=== PATIENT | female | born 1940 | race Caucasian/White ===

== ENCOUNTER 2016-07-29 07:57 | Day surgery (SDC) | payer MEDICARE, BC ==
[~2016-07-29 07:57] MED LIST: EPINEPHrine 1:10,000 1 MG/10 ML Syringe ONE; Midazolam 1 MG/ML 2 ML SDV ONE; Propofol 200 MG/20 ML SDV ONE; fentaNYL 100 MCG/2 ML SDV ONE
[2016-07-29] MEDS ORDERED: Sodium Chloride 0.9% 1,000 ML IV SCH (08:00)
[2016-07-29] MEDS ORDERED: Sodium Chloride 0.9% 5 ML Syringe FLUSH PRN (08:00)
[2016-07-29] MEDS ORDERED: fentaNYL 100 MCG/2 ML SDV IV ONE (08:50)
[2016-07-29] MEDS ORDERED: Propofol 200 MG/20 ML SDV IV ONE (08:50)
[2016-07-29] MEDS ORDERED: Midazolam 1 MG/ML 2 ML SDV IV ONE (08:50)
--- NOTE | 2016-07-29 09:15 | PCM.OPNOTE ---
- General Post-Op/Procedure Note Date of Surgery/Procedure: 07/29/16 Operative Procedure(s): Upper GI endoscopy Anesthesia Technique: MAC Primary Surgeon: Michel Croft Complications: None Condition: Good Free Text/Narrative:: INFORMED CONSENT: Patient is here today for elective upper GI endoscopy. All aspects of this procedure have been discussed with the patient. All possible complications also, including possibility of perforation, infection, pain, bleeding, numbness of the throat, swallowing difficulty and unknown complications. In the event of perforation the patient may need surgical exploration to repair the defect. The patient understands fully well. Patient did not have any further questions for me at the end of my interview. The patient wishes for me to proceed. INSTRUMENT USED: Video gastroscope ANESTHESIA: [MAC] ASA CLASSIFICATION: [to] PROCEDURE PERFORMED: [upper gastrointestinal endoscopy] PHARYNX: Normal. ESOPHAGUS: Normal. Proximal: Normal. Middle: Normal. Lower: Normal. GE Junction: Normal. STOMACH: Normal. Cardia: Normal. Fundus: Normal. Lesser Curvature: Normal. Greater Curvature: Normal. Antrum: mild antral gastritis was observed. Pylorus: Normal. DUODENUM: Normal. First Part: Normal. Second Part: Normal. Third Part: Normal. RETROFLEXION: Normal. BIOPSY: None. TOLERANCE: Excellent. COMPLICATIONS: None. Final diagnosis: Mild antral gastritis, otherwise negative gastroscopy
[2016-07-29 10:13] LABS: CHLORIDE,CL 104 mmol/L (98-115); SODIUM,NA 143 mmol/L (136-145)
[2016-07-29] MEDS ORDERED: Diatrizoate Meglumine/Diatrizoate Sodium 37% 120 ML Bottle PO ONE (10:48)
[2016-07-29] MEDS ORDERED: Iopamidol 612 MG/ML 75 ML Bottle IVPUSH ONE (10:48)
[2016-07-29] MEDS ORDERED: Sodium Chloride 0.9% 50 ML SDV FLUSH SCH (11:00)
[2016-07-29 11:16] VITALS: BP 158/80
== END 2016-07-29 12:25 | disposition home or self-care (01) ==
LOC: KA.SDS 07:57
PROVIDERS: ATTEND Family Medicine
DX: K29.50 Unspecified chronic gastritis without bleeding (principal); I10 Essential (primary) hypertension; E11.9 Type 2 diabetes mellitus without complications; E78.5 Hyperlipidemia, unspecified; I48.91 Unspecified atrial fibrillation; E03.9 Hypothyroidism, unspecified; E78.00 Pure hypercholesterolemia, unspecified; Z95.0 Presence of cardiac pacemaker; Z79.84 Long term (current) use of oral hypoglycemic drugs; Z79.899 Other long term (current) drug therapy; Z88.8 Allergy status to other drugs, medicaments and biological substances
CPT/HCPCS: 36415; 43235; 74177; 80048; 82962; J2250; J2704; J3010; J7030; Q9963; Q9967; 00740

== ENCOUNTER 2016-08-12 09:04 | Day surgery (SDC) | payer MEDICARE, BC ==
[~2016-08-12 09:04] MED LIST changes: -Midazolam 1 MG/ML 2 ML SDV ONE; -Propofol 200 MG/20 ML SDV ONE; -fentaNYL 100 MCG/2 ML SDV ONE
[2016-08-12] MEDS ORDERED: fentaNYL 100 MCG/2 ML SDV ONE (09:06)
[2016-08-12] MEDS ORDERED: Midazolam 1 MG/ML 2 ML SDV ONE (09:06)
[2016-08-12] MEDS ORDERED: Propofol 200 MG/20 ML SDV ONE ×2 (09:07→09:34)
[2016-08-12] MEDS ORDERED: Sodium Chloride 0.9% 1,000 ML IV SCH (09:30)
[2016-08-12] MEDS ORDERED: Sodium Chloride 0.9% 5 ML Syringe FLUSH PRN (09:30)
[2016-08-12] MEDS ORDERED: fentaNYL 100 MCG/2 ML SDV IV ONE (10:15)
[2016-08-12] MEDS ORDERED: Midazolam 1 MG/ML 2 ML SDV IV ONE (10:15)
[2016-08-12] MEDS ORDERED: ePHEDrine 50 MG/ML SDV IV ONE (10:15)
[2016-08-12] MEDS ORDERED: Propofol 200 MG/20 ML SDV IV ONE (10:15)
--- NOTE | 2016-08-12 10:47 | PCM.OPNOTE ---
- General Post-Op/Procedure Note Date of Surgery/Procedure: 08/12/16 Operative Procedure(s): Colonoscopy Primary Surgeon: Michel Croft Complications: None Condition: Good Free Text/Narrative:: INFORMED CONSENT: Patient is here today for elective colonoscopy. All aspects of this procedure have been discussed with the patient. All possible complications also, including possibility of perforation, infection, pain, bleeding and unknown complications. In the event of perforation patient may need to have abdominal exploration, colon resection, colostomy and even was discussed. Anesthetic complications were handled by anesthesia department. The patient understands fully well. Patient did not have any further questions for me at the end of my interview. The patient wishes for me to proceed. PREOPERATIVE DIAGNOSIS/INDICATIONS: [weight loss, left lower quadrant pain, alteration of bowels] POSTOPERATIVE DIAGNOSIS: [multiple diverticulosis of the sigmoid colon otherwise negative colonoscopy] INSTRUMENT USED: [employer] videocolonoscope. ASA CLASSIFICATION: [2] ANESTHESIA: Continuous EKG, oximetry and intermittent blood pressure and respiratory monitoring were performed throughout the procedure. IV Versed and Fentanyl were administered. PROCEDURE PERFORMED: Colonoscopy POSITIONS OF PATIENT: Left lateral. RECTUM: Normal. SIGMOID COLON: multiple diverticula cystoscopy seen otherwise negative. No obstructive lesions are identified.. DESCENDING COLON: Normal. SPLENIC FLEXURE: Normal. TRANSVERSE COLON: Normal. HEPATIC FLEXURE: Normal. ASCENDING COLON: Normal. CECUM: Normal. ILEOCECAL VALVE: Normal. BIOPSY: None. TOLERANCE: Excellent. COMPLICATIONS: None.
[2016-08-12 15:06] VITALS: BP 140/71
== END 2016-08-12 12:30 | disposition home or self-care (01) ==
LOC: KA.SDS 09:04
PROVIDERS: ATTEND Family Medicine
DX: K57.30 Diverticulosis of large intestine without perforation or abscess without bleeding (principal); E11.9 Type 2 diabetes mellitus without complications; E78.00 Pure hypercholesterolemia, unspecified; I10 Essential (primary) hypertension; I48.0 Paroxysmal atrial fibrillation; E03.9 Hypothyroidism, unspecified; I49.5 Sick sinus syndrome; Z79.4 Long term (current) use of insulin; Z95.0 Presence of cardiac pacemaker; Z79.899 Other long term (current) drug therapy
CPT/HCPCS: 00810; 45378; 82962; J2250; J2704; J3010

== ENCOUNTER 2017-10-26 04:32 | Emergency (ER) | payer MEDICARE, BC ==
[2017-10-26] MEDS ORDERED: Nitroglycerin 0.4 MG Tab.SL SL PRN (04:46)
[2017-10-26] MEDS ORDERED: Sodium Chloride 0.9% 5 ML Syringe FLUSH PRN (04:46)
--- NOTE | 2017-10-26 04:58 | EDM.PDOC ---
ED HPI GENERAL MEDICAL PROBLEM - General Chief Complaint: Cardiovascular Problem Stated Complaint: high blood pressure Time Seen by Provider: 10/26/17 04:40 Source of Information: Reports: Patient History Limitations: Reports: No Limitations - History of Present Illness INITIAL COMMENTS - FREE TEXT/NARRATIVE: 77 YO WF presents to ER complaining of uncontrolled hypertension which began tonight. Pt states she woke from sleep due to thunder and with feelings of palpitations and mild left arm and hand pain. Pt took her blood pressure and found it to be 216/100 prompting ER visit. Pt has been having trouble controlling her blood pressure since 10/21/2017. Pt takes metoprolol 25mg PO BID and HCTZ 25mg PO QD for blood pressure control. Pt was taken off her losartan months ago. Pt denies chest pain, shortness of breath, nausea/vomiting, headache or dizziness. Onset Date: 10/21/17 Duration: Day(s): (6) Location: Reports: Chest Quality: Reports: Dull Severity: Mild Improves with: Reports: None Worsens with: Reports: None Associated Symptoms: Reports: No Other Symptoms - Related Data Allergies Allergy/AdvReac Type Severity Reaction Status Date / Time niacin Allergy Mild TURNS Verified 10/26/17 04:33 REALLY RED Home Meds: Home Meds Cranberry Fruit [Cranberry] 2,000 mg PO DAILY 02/10/16 [History] Hydrochlorothiazide 12.5 mg PO DAILY 02/10/16 [History] Levothyroxine [Synthroid] 50 mcg PO ACBREAKFAST 02/10/16 [History] Vit C/E/Zn/Coppr/Lutein/Zeaxan [Preservision Areds 2 Softgel] 1 tab PO BID 02/09 [History] atorvaSTATin [Lipitor] 10 mg PO DAILY 02/10/16 [History] metFORMIN HCl [Metformin HCl ER] 1,000 mg PO DAILY 02/10/16 [History] Apixaban [Eliquis] 5 mg PO BID 02/14/16 [History] Folic Acid 0.8 mg PO DAILY 03/03/16 [History] Metoprolol Tartrate [Lopressor] 25 mg PO BID 03/03/16 [History] Calcium Carbonate/Vitamin D3 [Calcium 500 mg Chewable Tablet] 1 each PO DAILY [History] Omeprazole 20 mg PO DAILY 10/26/17 [History] Past Medical History HEENT History: Reports: Cataract Cardiovascular History: Reports: Afib, Arrhythmia, High Cholesterol, Hypertension, Pacemaker Gastrointestinal History: Reports: Cholelithiasis [employer] History: Reports: Other (See Below) Other [employer] History: G-4,P-4 Musculoskeletal History: Reports: Other (See Below) Other Musculoskeletal History: fallen arches. curvature of the spine, sleeps in a recliner at home Other Neuro History: MRI right cyst sinus--2017 Endocrine/Metabolic History: Reports: Diabetes, Type II, Hypothyroidism - Infectious Disease History Infectious Disease History: Reports: Chicken Pox, Mumps - Past Surgical History HEENT Surgical History: Reports: Tonsillectomy Cardiovascular Surgical History: Reports: Pacer Other Cardiovascular Surgeries/Procedures: pacemaker 2015 GI Surgical History: Reports: Cholecystectomy Endocrine Surgical History: Reports: None Musculoskeletal Surgical History: Reports: None Social & Family History - Family History Cardiac: Reports: Other (See Below) Other Cardiac Family History: heart disease - Caffeine Use Caffeine Use: Reports: Tea ED ROS GENERAL - Review of Systems Review Of Systems: See Below Constitutional: Reports: No Symptoms HEENT: Reports: No Symptoms Respiratory: Reports: No Symptoms Cardiovascular: Reports: Palpitations Endocrine: Reports: No Symptoms GI/Abdominal: Reports: No Symptoms : Reports: No Symptoms Musculoskeletal: Reports: No Symptoms Skin: Reports: No Symptoms Neurological: Reports: No Symptoms Psychiatric: Reports: No Symptoms Hematologic/Lymphatic: Reports: No Symptoms Immunologic: Reports: No Symptoms ED EXAM, GENERAL - Physical Exam Exam: See Below Exam Limited By: No Limitations General Appearance: Alert, WD/WN, No Apparent Distress Eye Exam: Bilateral Eye: EOMI, PERRL Head: Atraumatic, Normocephalic Neck: Normal Inspection, Supple, Non-Tender, Full Range of Motion Respiratory/Chest: No Respiratory Distress, Lungs Clear, Normal Breath Sounds, No Accessory Muscle Use, Chest Non-Tender Cardiovascular: Normal Peripheral Pulses, Regular Rate, Rhythm, No Edema, No Gallop, No JVD, No Murmur, No Rub GI/Abdominal: Normal Bowel Sounds, Soft, Non-Tender, No Organomegaly, No Distention, No Abnormal Bruit, No Mass Back Exam: Normal Inspection, Full Range of Motion, NT Extremities: Normal Inspection, Normal Range of Motion, Non-Tender, Normal Capillary Refill, No Pedal Edema Neurological: Alert, Oriented, CN II-XII Intact, Normal Cognition, Normal Gait, Normal Reflexes, No Motor/Sensory Deficits Psychiatric: Normal Affect, Normal Mood Skin Exam: Warm, Dry, Intact, Normal Color, No Rash Lymphatic: No Adenopathy EKG INTERPRETATION EKG Date: 10/26/17 Time: 04:42 Rhythm: NSR Rate (Beats/Min): 76 [place]: Normal P-Wave: Present QRS: Normal ST-T: Normal QT: Normal Comparison: NA - No Prior EKG EKG Interpretation Comments: 100% AV paced Course - Vital Signs Last Recorded V/S: Last Vital Signs Temp 36.8 C 10/26/17 04:32 Pulse 77 10/26/17 05:41 Resp 18 10/26/17 05:41 BP 159/78 H 10/26/17 05:41 Pulse Ox 93 L 10/26/17 05:41 - Orders/Labs/Meds Orders: Active Orders 24 hr Category Date Time Status Cardiac Monitoring [RC] . DIRECTED Care 10/26/17 04:46 Ordered EKG Documentation Completion [RC] ASDIRECTED Care 10/26/17 04:46 Ordered Peripheral IV Care [RC] . DIRECTED Care 10/26/17 04:46 Ordered Chest 1V Frontal [CR] Stat Exams 10/26/17 04:46 Ordered Nitroglycerin [Nitrostat] Med 10/26/17 04:46 Ordered 0.4 mg SL Q5M PRN Sodium Chloride 0.9% [Syrex Flush] Med 10/26/17 04:46 Ordered 5 ml FLUSH Q8HR PRN Peripheral IV Insertion Adult [OM.PC] Routine Oth 10/26/17 04:46 Ordered EKG 12 Lead [EK] Routine Ther 10/26/17 04:46 Ordered Medication Orders Nitroglycerin (Nitrostat) 0.4 mg SL Q5M PRN PRN Reason: Chest Pain Last Admin: 10/26/17 05:13 Dose: 0.4 mg Sodium Chloride (Syrex Flush) 5 ml FLUSH Q8HR PRN PRN Reason: Keep Vein Open Labs: Laboratory Tests 10/26/17 10/26/17 10/26/17 Range/Units 04:50 04:50 04:50 WBC 4.9 L (5.0-10.0) 10^3/uL RBC 4.16 (3.80-5.50) 10^6/uL Hgb 13.2 (12.0-16.0) g/dL Hct 39.2 (37.0-47.0) % MCV 94.2 H (82.0-92.0) fL MCH 31.6 H (27.0-31.0) pg MCHC 33.6 (32.0-36.0) g/dL RDW 12.8 (11.5-14.5) % Plt Count 216 (150-300) 10^3/uL MPV 6.7 L (7.4-10.4) fL Neut % (Auto) 55.0 (50.0-70.0) % Lymph % (Auto) 33.2 (20.0-40.0) % [place] % (Auto) 8.6 H (2.0-8.0) % Eos % (Auto) 2.2 (1.0-3.0) % Baso % (Auto) 1.0 (0.0-1.0) % Neut # (Auto) 2.8 (2.5-7.0) 10^3/uL Lymph # (Auto) 1.6 (1.0-4.0) 10^3/uL [place] # (Auto) 0.4 (0.1-0.8) 10^3/uL Eos # (Auto) 0.1 (0.1-0.3) 10^3/uL Baso # (Auto) 0.0 (0.0-0.1) 10^3/uL PT 9.8 (8.9-11.4) SEC INR 1.0 (0.9-1.1) APTT 24.1 (20.8-31.2) SEC Sodium 141 (136-145) mmol/L Potassium 3.6 (3.3-5.3) mmol/L Chloride 103 (98-115) mmol/L Carbon Dioxide 29.2 (21.0-32.0) mmol/L Anion Gap 12.4 (5-15) mmol/L BUN 25 (6-25) mg/dL Creatinine 0.83 (0.51-1.17) mg/dL Est Cr Clr Drug Dosing 58.43 mL/min Estimated GFR (MDRD) > 60 mL/min Glucose 139 mg/dL Calcium 8.9 (8.7-10.3) mg/dL Total Bilirubin 0.4 (0.2-1.0) mg/dL AST 21 (15-37) U/L ALT 25 (12-78) U/L Alkaline Phosphatase 82 (46-116) IU/L Creatine Kinase 77 (26-276) U/L CK-MB (CK-2) 0.60 (0.00-4.30) ng/mL Troponin I < 0.04 (0.00-0.070) ng/mL Total Protein 7.6 (6.4-8.2) g/dL Albumin 3.34 (3.00-4.80) g/dL Meds: Medications Generic Name Dose Route Start Last Admin Trade Name Freq PRN Reason Stop Dose Admin Nitroglycerin 0.4 mg 10/26/17 04:46 10/26/17 05:13 Nitrostat SL 0.4 mg Q5M PRN Administration Chest Pain Sodium Chloride 5 ml 10/26/17 04:46 Syrex Flush FLUSH Q8HR PRN Keep Vein Open Discontinued Medications Generic Name Dose Route Start Last Admin Trade Name Freq PRN Reason Stop Dose Admin Nitroglycerin 1 gm 10/26/17 05:21 10/26/17 05:26 Nitro-Bid 2% TOP 10/26/17 05:22 1 gm ONETIME ONE Administration - Radiology Interpretation Free Text/Narrative:: CXR- NAD - Re-Assessments/Exams Free Text/Narrative Re-Assessment/Exam: 10/26/17 05:45 Pt currently without chest pain or headache. Discussed hospitalization for blood pressure control and pt states she would rather go home. Pt instructed to take her motoprolol 25mg and HCTZ 25mg this am and return if symptoms continue or chest pain/TEAGUE ensue. Pt instructed to follow up with Dr Ricardo tomorrow for further evaluation and treatment of blood pressure. Departure - Departure Time of Disposition: 05:49 Disposition: Home, Self-Care 01 Condition: Good Clinical Impression: Palpitation Hypertension Qualifiers: Hypertension type: essential hypertension Qualified Code(s): I10 - Essential ( primary) hypertension Instructions: Palpitations, Hypertension Referrals: Hanane Pryor MD [Primary Care Provider] - Forms: ED Department Discharge Additional Instructions: 1. Discharge home 2. Pt instructed to take her motoprolol 25mg and HCTZ 25mg this am and return if symptoms continue or chest pain/TEAGUE ensue. Pt instructed to follow up with Dr Ricardo tomorrow for further evaluation and treatment of blood pressure. 3. Return to ER for BP greater than 200/100 or chest pain/shortness of breath/ or headache - My Orders Last 24 Hours: My Active Orders 10/26/17 04:46 Cardiac Monitoring [RC] . DIRECTED EKG Documentation Completion [RC] ASDIRECTED Peripheral IV Care [RC] . DIRECTED Chest 1V Frontal [CR] Stat Nitroglycerin [Nitrostat] 0.4 mg SL Q5M PRN Sodium Chloride 0.9% [Syrex Flush] 5 ml FLUSH Q8HR PRN Peripheral IV Insertion Adult [OM.PC] Routine EKG 12 Lead [EK] Routine - Assessment/Plan Last 24 Hours: My Active Orders 10/26/17 04:46 Cardiac Monitoring [RC] . DIRECTED EKG Documentation Completion [RC] ASDIRECTED Peripheral IV Care [RC] . DIRECTED Chest 1V Frontal [CR] Stat Nitroglycerin [Nitrostat] 0.4 mg SL Q5M PRN Sodium Chloride 0.9% [Syrex Flush] 5 ml FLUSH Q8HR PRN Peripheral IV Insertion Adult [OM.PC] Routine EKG 12 Lead [EK] Routine Assessment:: 1. Palpitations 2. Uncontrolled Hypertension Plan: 1. Discharge home 2. Pt instructed to take her motoprolol 25mg and HCTZ 25mg this am and return if symptoms continue or chest pain/TEAGUE ensue. Pt instructed to follow up with Dr Ricardo tomorrow for further evaluation and treatment of blood pressure. 3. Return to ER for BP greater than 200/100 or chest pain/shortness of breath/ or headache
[2017-10-26] MEDS ORDERED: Nitroglycerin 2% Oint 1 GM UD Packet TOP ONE (05:21)
[2017-10-26 05:39] LABS: ANION GAP 12.4 mmol/L (5-15); CHLORIDE,CL 103 mmol/L (98-115); SODIUM,NA 141 mmol/L (136-145)
[2017-10-26 05:41] VITALS: BP 159/78
== END 2017-10-26 06:05 | disposition home or self-care (01) ==
LOC: KA.ED 04:32
DX: I10 Essential (primary) hypertension (principal); R00.2 Palpitations; E78.00 Pure hypercholesterolemia, unspecified; E11.9 Type 2 diabetes mellitus without complications; E03.9 Hypothyroidism, unspecified; Z88.8 Allergy status to other drugs, medicaments and biological substances; Z79.899 Other long term (current) drug therapy; Z79.84 Long term (current) use of oral hypoglycemic drugs
CPT/HCPCS: 71045; 80053; 82550; 82553; 84484; 85025; 85610; 85730; 93005; 99284; A9270-GY

== ENCOUNTER 2019-01-13 10:00 | Emergency (ER) | payer MEDICARE, BC ==
[2019-01-13] MEDS ORDERED: Sodium Chloride 0.9% 10 ML Syringe FLUSH PRN (10:22)
--- NOTE | 2019-01-13 11:21 | EDM.PDOC ---
ED HPI GENERAL MEDICAL PROBLEM - General Chief Complaint: General Stated Complaint: NUMBNESS IN LEFT ARM/HAND, BLOOD PRESSURE Time Seen by Provider: 01/13/19 10:45 Source of Information: Reports: Patient, Significant Other History Limitations: Reports: No Limitations - History of Present Illness INITIAL COMMENTS - FREE TEXT/NARRATIVE: Patient presents with complaint of elevated blood pressure and numbness of fingers of right hand. This occurs fairly often but is usually in the left hand. She takes Losartan and Metoprolol daily and uses Hydralazine prn pressure over 180/110. She has had the Hydralazine for a little over 6 weeks and we counted 12 tablets used from the bottle today; so she uses it about twice weekly. She denies chest pain or dyspnea. She has had increased urine frequency last few days. She recently had a UTI diagnosis and started on Abx but culture ruled out so she stopped the Abx. - Related Data Allergies Allergy/AdvReac Type Severity Reaction Status Date / Time niacin Allergy Mild TURNS Verified 01/13/19 10:17 REALLY RED Home Meds: Home Meds Hydrochlorothiazide 25 mg PO DAILY 02/10/16 [History] Levothyroxine [Synthroid] 50 mcg PO ACBREAKFAST 02/10/16 [History] Vit C/E/Zn/Coppr/Lutein/Zeaxan [Preservision Areds 2 Softgel] 1 tab PO DAILY [History] atorvaSTATin [Lipitor] 10 mg PO DAILY 02/10/16 [History] Apixaban [Eliquis] 5 mg PO BID 02/14/16 [History] Metoprolol Tartrate [Lopressor] 25 mg PO BID 03/03/16 [History] Cyanocobalamin (Vitamin B-12) [Vitamin B-12] 1,000 mcg PO DAILY 01/13/19 [ History] Losartan Potassium 50 mg PO DAILY 01/13/19 [History] Mv-Mn/Folic Acid/Vit [id number] [Alive Once Daily Women 50 Plus] 1 each PO DAILY 01/13/19 [History] hydrALAZINE HCl [Hydralazine HCl] 10 mg PO DAILY PRN 01/13/19 [History] metFORMIN HCl [Metformin HCl ER] 1,000 mg PO DAILY 01/13/19 [History] Past Medical History HEENT History: Reports: Cataract Cardiovascular History: Reports: Afib, Arrhythmia, High Cholesterol, Hypertension, Pacemaker Gastrointestinal History: Reports: Cholelithiasis, GERD LEATHER TOGGLER History: Reports: Other (See Below) Other LEATHER TOGGLER History: G-4,P-4 Musculoskeletal History: Reports: Other (See Below) Other Musculoskeletal History: fallen arches. curvature of the spine, sleeps in a recliner at home Other Neuro History: MRI right cyst sinus--2017 with pain to area above R eyes radiating to the R ear Endocrine/Metabolic History: Reports: Diabetes, Type II, Hypothyroidism Hematologic History: Reports: Folic Acid - Infectious Disease History Infectious Disease History: Reports: Chicken Pox, Mumps - Past Surgical History HEENT Surgical History: Reports: Tonsillectomy Cardiovascular Surgical History: Reports: Pacer Other Cardiovascular Surgeries/Procedures: pacemaker 2016 GI Surgical History: Reports: Cholecystectomy Endocrine Surgical History: Reports: None Musculoskeletal Surgical History: Reports: None Social & Family History - Family History Cardiac: Reports: Other (See Below) Other Cardiac Family History: heart disease - Tobacco Use Smoking Status *Q: Never Smoker Second Hand Smoke Exposure: No - Caffeine Use Caffeine Use: Reports: Soda, Tea Caffeine Use Comment: not assessed - Recreational Drug Use Recreational Drug Use: No ED ROS GENERAL - Review of Systems Review Of Systems: See Below Constitutional: Denies: Fever, Weakness HEENT: Denies: Throat Pain, Throat Swelling, Vision Change Respiratory: Denies: Shortness of Breath, Cough Cardiovascular: Reports: Blood Pressure Problem, Lightheadedness Endocrine: Reports: Other (NIDDM) GI/Abdominal: Denies: Abdominal Pain, Bloody Stool, Diarrhea, Nausea, Vomiting : Reports: Frequency. Denies: Dysuria Musculoskeletal: Denies: Neck Pain, Shoulder Pain, Arm Pain, Back Pain, Hand Pain, Leg Pain, Foot Pain Skin: Denies: Cyanosis, Jaundice, Mottled, Pallor, Diaphoresis Neurological: Denies: Confusion, Dizziness, Headache, Seizure, Syncope, Trouble Speaking, Difficulty Walking Psychiatric: Denies: Agitation, Anxiety ED EXAM, GENERAL - Physical Exam Exam: See Below Exam Limited By: No Limitations General Appearance: Alert, WD/WN, No Apparent Distress Eye Exam: Bilateral Eye: EOMI, Normal Inspection, PERRL Ears: Normal External Exam, Hearing Grossly Normal Nose: Normal Inspection, No Blood Throat/Mouth: Normal Inspection, Normal Lips, Normal Voice, No Airway Compromise Head: Atraumatic, Normocephalic Neck: Normal Inspection, Supple, Non-Tender, Full Range of Motion Respiratory/Chest: No Respiratory Distress, Lungs Clear, Normal Breath Sounds Cardiovascular: Normal Peripheral Pulses, Regular Rate, Rhythm GI/Abdominal: Normal Bowel Sounds, Soft, Non-Tender, No Organomegaly, No Distention Back Exam: Normal Inspection, Full Range of Motion. No: CVA Tenderness (L), CVA Tenderness (R) Extremities: Normal Range of Motion, Other (Decreased sensation to touch of right small finger and ulnar border of ring finger. Otherwise normal sensation throughout.) Neurological: Alert, Oriented, Normal Cognition, No Motor/Sensory Deficits Psychiatric: Normal Affect, Normal Mood Skin Exam: Warm, Dry, Intact, Normal Color, No Rash Course - Vital Signs Last Recorded V/S: Last Vital Signs Temp 97.9 F 01/13/19 10:00 Pulse 71 01/13/19 11:58 Resp 21 H 01/13/19 11:58 BP 163/69 H 01/13/19 11:58 Pulse Ox 95 01/13/19 11:58 - Orders/Labs/Meds Orders: Active Orders 24 hr Category Date Time Status EKG Documentation Completion [RC] ASDIRECTED Care 01/13/19 10:23 Active Peripheral IV Care [RC] . DIRECTED Care 01/13/19 10:23 Active Heparin Sodium/0.45% NaCl [Heparin 25,000 Units in 1/2 Med 01/13/19 12:00 Ordered NS 250 ML] 25,000 units in 250 ml IV TITRATE Nitroglycerin [Nitrostat] Med 01/13/19 11:39 Ordered 0.4 mg SL Q5M PRN Sodium Chloride 0.9% [Saline Flush] Med 01/13/19 10:22 Active 10 ml FLUSH Q8HR PRN Peripheral IV Insertion Adult [OM.PC] Routine Oth 01/13/19 10:22 Ordered Medication Orders Heparin Sodium/Sodium Chloride (Heparin 25,000 Units In 1/2 Ns 250 Ml) 25,000 units in 250 mls @ 9.798 mls/hr IV TITRATE CAROL; Protocol Nitroglycerin (Nitrostat) 0.4 mg SL Q5M PRN PRN Reason: Chest Pain Sodium Chloride (Saline Flush) 10 ml FLUSH Q8HR PRN PRN Reason: keep vein open Labs: Laboratory Tests 01/13/19 01/13/19 01/13/19 Range/Units 10:30 10:45 10:50 WBC 5.28 (5.00-10.00) 10^3/uL RBC 3.84 (3.80-5.50) 10^6/uL Hgb 12.2 (12.0-16.0) g/dL Hct 36.2 L (37.0-47.0) % MCV 94.3 H (82.0-92.0) fL MCH 31.8 H (27.0-31.0) pg MCHC 33.7 (32.0-36.0) g/dL RDW 13.0 (11.5-14.5) % Plt Count 209 (150-400) 10^3/uL MPV 9.4 (7.4-10.4) fL Immature Gran % (Auto) 0.0 (0.0-5.0) % Neut % (Auto) 70.5 H (50.0-70.0) % Lymph % (Auto) 20.8 (20.0-40.0) % [place] % (Auto) 7.0 (2.0-8.0) % Eos % (Auto) 0.9 L (1.0-3.0) % Baso % (Auto) 0.8 (0.0-1.0) % Immature Gran # (Auto) 0.00 (0.00-0.50) 10^3/uL Neut # (Auto) 3.72 (2.50-7.00) 10^3/uL Lymph # (Auto) 1.10 (1.00-4.00) 10^3/uL [place] # (Auto) 0.37 (0.10-0.80) 10^3/uL Eos # (Auto) 0.05 L (0.10-0.30) 10^3/uL Baso # (Auto) 0.04 (0.00-0.10) 10^3/uL Sodium 139 (136-145) mmol/L Potassium 3.8 (3.3-5.3) mmol/L Chloride 99 (98-115) mmol/L Carbon Dioxide 30.7 (21.0-32.0) mmol/L Anion Gap 13.1 (5-15) mmol/L BUN 21 (6-25) mg/dL Creatinine 0.78 (0.51-1.17) mg/dL Est Cr Clr Drug Dosing 61.16 mL/min Estimated GFR (MDRD) > 60 mL/min Glucose 249 H (75 - 99) mg/dL Calcium 9.3 (8.7-10.3) mg/dL Total Bilirubin 0.7 (0.2-1.0) mg/dL AST 17 (15-37) U/L ALT 25 (12-78) U/L Alkaline Phosphatase 78 (46-116) IU/L Troponin I 0.08 H* (0.00-0.070) ng/mL Total Protein 7.3 (6.4-8.2) g/dL Albumin 3.46 (3.00-4.80) g/dL Specimen Type Urinvoid Urine Color Yellow (YELLOW) Urine Appearance Slightly cloudy H (CLEAR) Urine pH 6.0 (5.0-9.0) Ur Specific Slinger 1.010 (1.005-1.030) Urine Protein Negative (NEGATIVE) mg/dL Urine Glucose (UA) Negative (NEGATIVE) mg/dL Urine Ketones Negative (NEGATIVE) mg/dL Urine Occult Blood Negative (NEGATIVE) Urine Nitrite Negative (NEGATIVE) Urine Bilirubin Negative (NEGATIVE) Urine Urobilinogen 0.2 (0.2-1.0) E.U./dL Ur Leukocyte Esterase Small H (NEGATIVE) Urine RBC 0-5 (0-5) /HPF Urine WBC 20-30 H (0-5) /HPF Ur Epithelial Cells Moderate H /LPF Urine Bacteria Moderate H (NONE TO FEW) /HPF Meds: Medications Generic Name Dose Route Start Last Admin Trade Name Freq PRN Reason Stop Dose Admin Heparin Sodium/Sodium Chloride 25,000 units in 250 mls @ 9.798 mls/hr 12:00 Heparin 25,000 Units In 1/2 Ns 250 Ml IV TITRATE CAROL Protocol 12 UNITS/KG/HR Nitroglycerin 0.4 mg 01/13/19 11:39 Nitrostat SL Q5M PRN Chest Pain Sodium Chloride 10 ml 01/13/19 10:22 Saline Flush FLUSH Q8HR PRN keep vein open Discontinued Medications Generic Name Dose Route Start Last Admin Trade Name Freq PRN Reason Stop Dose Admin Aspirin 324 mg 01/13/19 11:39 Aspirin PO 01/13/19 11:40 ONETIME ONE Heparin Sodium (Porcine) 5,000 units 01/13/19 11:58 Heparin Sodium IVPUSH 01/13/19 11:59 ONETIME ONE - Re-Assessments/Exams Free Text/Narrative Re-Assessment/Exam: 01/13/19 11:53 Trop is 0.08, patient is having a vague, [id number] chest discomfort or pressure. Also an occasional sharp substernal pain. Giving ASA and nitro now. Discussed findings and recommendation with patient and her and they would like to go to [place]. Discussed case with Dr. Trevino (hospitalist) who accepted for transfer. Also discussed with Dr. Shabazz regarding UA and will not treat for UTI now but wait on culture. UA shows small leukocyte esterase and moderate WBC and bacteria. 01/13/19 12:06 Discussed with patient the evidence of ulnar nerve entrapment and advised ortho follow up if desired, especially if worsening. 01/13/19 12:26 Patient is stable. Departure - Departure Time of Disposition: 12:04 Disposition: DC/Tfer to Acute Hospital 02 Condition: Good Clinical Impression: NSTEMI, initial episode of care - Discharge Information Referrals: Hanane Pryor MD [Primary Care Provider] - Forms: ED Department Discharge - My Orders Last 24 Hours: My Active Orders 01/13/19 10:22 Sodium Chloride 0.9% [Saline Flush] 10 ml FLUSH Q8HR PRN Peripheral IV Insertion Adult [OM.PC] Routine 01/13/19 10:23 EKG Documentation Completion [RC] ASDIRECTED Peripheral IV Care [RC] . DIRECTED 01/13/19 11:39 Nitroglycerin [Nitrostat] 0.4 mg SL Q5M PRN 01/13/19 12:00 Heparin Sodium/0.45% NaCl [Heparin 25,000 Units in 1/2 NS 250 ML] 25,000 units in 250 ml IV TITRATE - Assessment/Plan Last 24 Hours: My Active Orders 01/13/19 10:22 Sodium Chloride 0.9% [Saline Flush] 10 ml FLUSH Q8HR PRN Peripheral IV Insertion Adult [OM.PC] Routine 01/13/19 10:23 EKG Documentation Completion [RC] ASDIRECTED Peripheral IV Care [RC] . DIRECTED 01/13/19 11:39 Nitroglycerin [Nitrostat] 0.4 mg SL Q5M PRN 01/13/19 12:00 Heparin Sodium/0.45% NaCl [Heparin 25,000 Units in 1/2 NS 250 ML] 25,000 units in 250 ml IV TITRATE
[2019-01-13 11:30] LABS: ANION GAP 13.1 mmol/L (5-15); CHLORIDE,CL 99 mmol/L (98-115); SODIUM,NA 139 mmol/L (136-145)
[2019-01-13] MEDS ORDERED: Aspirin 81 MG Tab.Chew PO ONE (11:39)
[2019-01-13] MEDS ORDERED: Nitroglycerin 0.4 MG Tab.SL SL PRN (11:39)
[2019-01-13] MEDS ORDERED: Heparin Sodium 5,000 Units/ML Vial IVPUSH ONE (11:58)
[2019-01-13 11:59] VITALS: PULSE 71
[2019-01-13] MEDS ORDERED: Heparin Sodium/0.45% NaCl 25,000 UNITS/250 ML BAG IV SCH (12:00)
[2019-01-13 12:15] VITALS: BP 165/76
== END 2019-01-13 12:50 ==
LOC: KA.ED 10:00
DX: I21.4 Non-ST elevation (NSTEMI) myocardial infarction (principal); I48.91 Unspecified atrial fibrillation; I10 Essential (primary) hypertension; E78.00 Pure hypercholesterolemia, unspecified; K21.9 Gastro-esophageal reflux disease without esophagitis; E11.9 Type 2 diabetes mellitus without complications; E03.9 Hypothyroidism, unspecified; Z79.84 Long term (current) use of oral hypoglycemic drugs; Z79.899 Other long term (current) drug therapy; Z88.8 Allergy status to other drugs, medicaments and biological substances
CPT/HCPCS: 36415; 80053; 81001; 84484; 85025; 85730; 93005; 96365; 99284; 99285; A9270; J1644

== ENCOUNTER 2019-03-23 08:53 | Day surgery (SDC) | payer MEDICARE, BC ==
[~2019-03-23 08:53] MED LIST changes: -EPINEPHrine 1:10,000 1 MG/10 ML Syringe ONE; +Sodium Chloride 0.9% 1,000 ML IV SCH; +Sodium Chloride 0.9% 10 ML Syringe FLUSH PRN
[2019-03-23] MEDS: Sodium Chloride 0.9% 1,000 ML IV SCH (09:15)
[2019-03-23] MEDS: Sodium Chloride 0.9% 10 ML Syringe FLUSH PRN (09:15)
[2019-03-23] MEDS ORDERED: Ketamine 200 MG/20 ML MDV ONE (10:06)
[2019-03-23] MEDS ORDERED: Propofol 200 MG/20 ML SDV ONE (10:06)
[2019-03-23] MEDS ORDERED: Lidocaine 2% 100 MG/5 ML Syringe ONE (10:07)
--- NOTE | 2019-03-23 10:33 | PCM.PN ---
- General Info Date of Service: 03/23/19 - Review of Systems Systems Review Comment:: 78-year-old female referred for EGD. She is having symptoms of dysphasia and difficulty swallowing. She denies symptoms of heartburn. Symptoms are more significant later in the day and less of a problem for breakfast. She is unable to determine any particular food which is worse than others. I have discussed the proposed EGD with the patient. She agrees to proceed excepting risks. Her recent history and physical is reviewed and no significant changes are noted. - Patient Data Vitals - Most Recent: Last Vital Signs Temp 97.8 F 03/23/19 09:25 Pulse 77 03/23/19 09:25 Resp 18 03/23/19 09:25 BP 159/92 H 03/23/19 09:25 Pulse Ox 97 03/23/19 09:25 Weight - Most Recent: 82.554 kg Lab Results Last 24 Hours: Laboratory Results - last 24 hr 03/23/19 Range/Units 09:16 POC Glucose 120 H (74-106) mg/dl Med Orders - Current: Current Medications Sodium Chloride (Normal Saline) 1,000 mls @ 30 mls/hr IV ASDIRECTED [facility] Last Admin: 03/23/19 09:15 Dose: 30 mls/hr Sodium Chloride (Saline Flush) 10 ml FLUSH Q8HR PRN PRN Reason: keep vein open Last Admin: 03/23/19 09:15 Dose: 10 ml Discontinued Medications Sodium Chloride (Normal Saline) 1,000 mls @ 50 mls/hr IV ASDIRECTED [facility] Ketamine HCl (Ketalar) Confirm Administered Dose 200 mg .ROUTE .STK-MED ONE Stop: 03/23/19 10:07 Lidocaine HCl (Xylocaine 2%) Confirm Administered Dose 100 mg .ROUTE .STK-MED ONE Stop: 03/23/19 10:08 Propofol (Diprivan 20 Ml) Confirm Administered Dose 200 mg .ROUTE .STK-MED ONE Stop: 03/23/19 10:07 Sodium Chloride (Saline Flush) 10 ml FLUSH Q8HR PRN PRN Reason: keep vein open Sepsis Event Note - Focused Exam Vital Signs: Vital Signs Temp Pulse Resp BP Pulse Ox 03/23/19 09:25 97.8 F 77 18 159/92 H 97 Date Exam was Performed: 03/23/19 Time Exam was Performed: 10:31 - Problem List Review Problem List Initiated/Reviewed/Updated: Yes - My Orders Last 24 Hours: My Active Orders 03/22/19 15:31 Resuscitation Status Routine 03/23/19 09:00 Blood Glucose Check, Bedside [RC] ONETIME Peripheral IV Care [RC] . DIRECTED Verify Patient Consent Obtain [RC] ASDIRECTED Vital Signs [RC] 1200 Sodium Chloride 0.9% [Normal Saline] 1,000 ml IV ASDIRECTED Sodium Chloride 0.9% [Saline Flush] 10 ml FLUSH Q8HR PRN Peripheral IV Insertion Adult [OM.PC] Routine 03/23/19 Breakfast Nothing Per Oral Diet [DIET] - Assessment Assessment:: Dysphasia - Plan Plan:: EGD
--- NOTE | 2019-03-23 11:17 | PCM.OPNOTE ---
- General Post-Op/Procedure Note Date of Surgery/Procedure: 03/23/19 Operative Procedure(s): EGD with biopsy Findings: Normal-appearing upper endoscopy. No visible abnormalities or narrowing in hypopharynx or esophagus Pre Op Diagnosis: Dysphasia Post-Op Diagnosis: Normal EGD Anesthesia Technique: MAC Primary Surgeon: Vaibhav Gilman Pathology: Biopsies of gastric antrum EBL in mLs: 3 Complications: None Condition: Good
--- NOTE | 2019-03-23 11:59 | OR ---
DATE OF SURGERY: 03/23/2019 SURGEON: Vaibhav Gilman MD PREOPERATIVE DIAGNOSIS: Dysphagia. POSTOPERATIVE DIAGNOSIS: Normal upper endoscopy. OPERATION PERFORMED: Esophagogastroduodenoscopy with biopsy. INDICATIONS FOR SURGERY: This 78-year-old female has been noticing increasing difficulty with swallowing her afternoon and evening meals. She is not having any pain in the throat area, but finds that foods and sometimes liquids will not swallow easily. FINDINGS: The structures noted on upper endoscopy appear normal. Her oral and hypopharynx as well as her esophagus appeared normal without visible signs of inflammation or any visible evidence of narrowing or mass. The lining of the stomach and proximal duodenum also appeared normal. DESCRIPTION OF PROCEDURE: The patient was taken to the operating room. She was given intravenous sedation and with her in the left lateral decubitus position, gastroscope was advanced through a mouth guard into the oral cavity. Under direct visualization, the oral and hypopharynx are examined as the scope was carefully advanced down into the esophagus. The scope was then advanced down through the esophagus, stomach, and into the duodenum where examination to the third portion was performed. After carefully examining the duodenum, the scope was withdrawn back into the stomach. Random biopsies of the antrum were taken to rule out H pylori. Full examination of the stomach including retroflexed examination of the fundus was performed. The GE junction was carefully examined as is the esophagus again as the scope was withdrawn. After the examination is completed, the scope was removed and the patient was taken from the operating room in satisfactory condition. ESTIMATED BLOOD LOSS: 3 mL. COMPLICATIONS: None. PROGNOSIS: Good. /[id number]/MODL
[2019-03-23 12:24] VITALS: BP 147/76; PULSE 70
== END 2019-03-23 12:22 | disposition home or self-care (01) ==
LOC: KA.SDS 08:53
PROVIDERS: ATTEND Surgery
DX: K31.89 Other diseases of stomach and duodenum (principal); R47.02 Dysphasia; I10 Essential (primary) hypertension; E11.9 Type 2 diabetes mellitus without complications; E03.9 Hypothyroidism, unspecified; I48.91 Unspecified atrial fibrillation; E78.00 Pure hypercholesterolemia, unspecified; F51.02 Adjustment insomnia; Z79.01 Long term (current) use of anticoagulants; Z79.899 Other long term (current) drug therapy; Z88.8 Allergy status to other drugs, medicaments and biological substances
CPT/HCPCS: 43239; 82962; J2001; J2704; J7030; 00731

== ENCOUNTER 2021-09-21 08:18 | Emergency (ER) | payer MEDICARE, BC ==
[2021-09-21] MEDS: Aspirin 81 MG Tab.Chew PO ONE (08:34)
[2021-09-21] MEDS: Sodium Chloride 0.9% 1,000 ML IV ONE (09:05)
[2021-09-21 09:14] LABS: CHLORIDE,CL 98 mmol/L (98-107); ESTIMATED GFR > 60 mL/min; SODIUM,NA 137 mmol/L (136-145)
[2021-09-21] MEDS: Sodium Chloride 0.9% 1,000 ML ONE (09:18)
[2021-09-21] MEDS: Morphine 2 MG/ML SYRINGE IVPUSH ONE (09:21)
[2021-09-21] MEDS: Methocarbamol 500 MG Tab PO ONE (10:25)
[2021-09-21 11:35] VITALS: BP 124/66; PULSE 72
== END 2021-09-21 11:04 | disposition home or self-care (01) ==
LOC: KA.ED 08:18
DX: R07.89 Other chest pain (principal); K21.9 Gastro-esophageal reflux disease without esophagitis; I48.91 Unspecified atrial fibrillation; E78.00 Pure hypercholesterolemia, unspecified; I10 Essential (primary) hypertension; E03.9 Hypothyroidism, unspecified; Z95.0 Presence of cardiac pacemaker; Z88.1 Allergy status to other antibiotic agents; Z79.01 Long term (current) use of anticoagulants; Z79.84 Long term (current) use of oral hypoglycemic drugs; Z79.899 Other long term (current) drug therapy
CPT/HCPCS: 36415; 71046; 80053; 81001; 82550; 84484; 85025; 93005; 93010; 96361; 96374; 99284; 99285-25; A9270-GY; J2270; J7030

== ENCOUNTER 2022-03-27 19:11 | Emergency (ER) | payer MEDICARE, BC ==
[2022-03-27 19:52] LABS: ANION GAP 11.2 mmol/L (5-15); CHLORIDE,CL 96 mmol/L (98-107); SODIUM,NA 132 mmol/L (136-145)
[2022-03-27 19:55] LABS: ESTIMATED GFR 71 mL/min (>=60)
[2022-03-27 20:17] LABS: RESPIRATORY SYNCYTIAL VIR NAA NEGATIVE (NEGATIVE)
[2022-03-27] MEDS: Sodium Chloride 0.9% 500 ML IV ONE (20:20)
[2022-03-27 20:28] LABS: CORONAVIRUS COVID-19 NAA NEGATIVE (NEGATIVE)
[2022-03-28] MEDS: Sodium Chloride 0.9% 1,000 ML IV ONE (00:18)
== END 2022-03-27 21:00 | disposition home or self-care (01) ==
LOC: KA.ED 19:11
DX: J10.1 Influenza due to other identified influenza virus with other respiratory manifestations (principal); I48.91 Unspecified atrial fibrillation; I10 Essential (primary) hypertension; E78.00 Pure hypercholesterolemia, unspecified; E03.9 Hypothyroidism, unspecified; Z88.1 Allergy status to other antibiotic agents; Z79.01 Long term (current) use of anticoagulants; Z79.82 Long term (current) use of aspirin; Z79.899 Other long term (current) drug therapy; Z20.822 Contact with and (suspected) exposure to COVID-19
CPT/HCPCS: 0241U; 36415; 71045; 80053; 81001; 85025; 87086; 99284; 99285; J7030

== ENCOUNTER 2024-04-10 11:42 | Inpatient (IN) | payer MEDICARE, BC ==
[2024-04-10 13:15] LABS: ALANINE AMINOTRANSFERASE,ALT 20 U/L (14-63); ALBUMIN 3.25 g/dL (3.40-5.00); ALKALINE PHOSPHATASE 85 U/L (46-116); ANION GAP 14.6 mmol/L (5-15); ASPARTATE AMNIOTRANSFERASE,AST 20 U/L (15-37); BILIRUBIN TOTAL 0.6 mg/dL (0.2-1.0); BLOOD UREA NITROGEN,BUN 26 mg/dL (7-18); C-REACTIVE PROTEIN 5.65 mg/dL (0.00-0.50); CALCIUM 8.9 mg/dL (8.7-10.3); CARBON DIOXIDE,CO2 28.2 mmol/L (21.0-32.0); CHLORIDE,CL 96 mmol/L (98-107); CREATININE 0.85 mg/dL (0.51-1.17); ESTIMATED GFR 67 mL/min (>=60); GLUCOSE RANDOM 161 mg/dL (70-140); POTASSIUM,K 3.8 mmol/L (3.5-5.1); PROTEIN TOTAL,TP 7.3 g/dL (6.4-8.2); SODIUM,NA 135 mmol/L (136-145)
[2024-04-10 13:19] LABS: INFLUENZA A NAA NEGATIVE (NEGATIVE); INFLUENZA B NAA NEGATIVE (NEGATIVE)
[2024-04-10 13:20] LABS: CORONAVIRUS COVID-19 NAA POSITIVE (NEGATIVE)
[2024-04-10] MEDS: Sodium Chloride 0.9% 1,000 ML IV SCH (14:03)
[2024-04-10 14:10] LABS: BASOPHILS ABSOLUTE AUTO 0.04 10^3/uL (0.00-0.10); BASOPHILS PERCENT AUTO 0.5 % (0.0-1.0); EOSINOPHILS ABSOLUTE AUTO 0.05 10^3/uL (0.10-0.30); EOSINOPHILS PERCENT AUTO 0.7 % (1.0-3.0); HEMATOCRIT 31.3 % (37.0-47.0); HEMOGLOBIN 10.2 g/dL (12.0-16.0); IMMATURE GRAN ABSOLUTE AUTO 0.02 10^3/uL (0.00-0.04); IMMATURE GRAN PERCENT AUTO 0.3 % (0.0-0.4); LYMPHOCYTES ABSOLUTE AUTO 0.51 10^3/uL (1.00-4.00); LYMPHOCYTES PERCENT AUTO 6.9 % (20.0-40.0); MEAN CORPUSCULAR HEMOGLOBIN 28.3 pg (27.0-31.0); MEAN CORPUSCULAR HGB CONC 32.6 g/dL (32.0-36.0); MEAN CORPUSCULAR VOLUME 86.9 fL (82.0-92.0); MEAN PLATELET VOLUME 9.5 fL (7.4-10.4); MONOCYTES ABSOLUTE AUTO 0.57 10^3/uL (0.10-0.80); MONOCYTES PERCENT AUTO 7.8 % (2.0-8.0); NEUTROPHILS ABSOLUTE AUTO 6.16 10^3/uL (2.50-7.00); NEUTROPHILS PERCENT AUTO 83.8 % (50.0-70.0); PLATELET COUNT,PLT 165 10^3/uL (150-400); RED CELL DISTRIBUTION WIDTH 15.6 % (11.5-14.5); WHITE BLOOD CELL COUNT,WBC 7.35 10^3/uL (5.00-10.00)
[2024-04-10 14:28] LABS: APPEARANCE,URINE CLEAR (CLEAR); BILIRUBIN,URINE NEGATIVE (NEGATIVE); COLOR,URINE YELLOW (YELLOW); GLUCOSE,URINE NEGATIVE (NEGATIVE); KETONES,URINE 15 mg/dL (NEGATIVE); LEUKOCYTE ESTERASE,URINE NEGATIVE (NEGATIVE); NITRITE,URINE NEGATIVE (NEGATIVE); OCCULT BLOOD,URINE NEGATIVE (NEGATIVE); PROTEIN,URINE 100 mg/dL (NEGATIVE); UROBILINOGEN,URINE 0.2 E.U./dL (0.2-1.0)
[2024-04-10 14:31] LABS: BACTERIA,URINE RARE /HPF (NONE TO FEW); EPITHELIAL CELLS,URINE RARE /LPF; MUCUS,URINE RARE /LPF (NEGATIVE); WBC,URINE 0-5 /HPF (0-5)
[2024-04-10] MEDS ORDERED: Sennosides/Docusate Sodium 50-8.6 MG Tab PO PRN (16:30)
[2024-04-10] MEDS ORDERED: Ondansetron 4 MG Tab.DIS PO PRN (16:30)
[2024-04-10] MEDS ORDERED: Polyethylene Glycol 3350 Powder 17 GM Packet PO PRN (16:30)
[2024-04-10] MEDS ORDERED: Glucagon,Human Recombinant 1 MG Vial IM PRN (16:37)
[2024-04-10] MEDS ORDERED: 50% Dextrose in Water 50 ML Syringe IVPUSH PRN (16:37)
[2024-04-10] MEDS: REMDESIVIR 200 MG in Sodium Chloride 0.9% 250 ML IV ONE (17:43)
[2024-04-10] MEDS: metFORMIN 500 MG Tab.ER PO SCH (18:11)
[2024-04-10] MEDS: Insulin Lispro 100 Unit/ML 3 ML KwikPen SUBCUT SCH (18:11)
[2024-04-10] MEDS: Apixaban 5 MG Tab PO SCH (19:59)
[2024-04-10] MEDS: Acetaminophen 325 MG Tab PO PRN (19:59)
[2024-04-10] MEDS: Metoprolol Tartrate 25 MG Tab PO SCH (20:00)
[2024-04-11 07:58] LABS: BASOPHILS ABSOLUTE AUTO 0.03 10^3/uL (0.00-0.10); BASOPHILS PERCENT AUTO 0.4 % (0.0-1.0); EOSINOPHILS ABSOLUTE AUTO 0.01 10^3/uL (0.10-0.30); EOSINOPHILS PERCENT AUTO 0.1 % (1.0-3.0); HEMATOCRIT 27.4 % (37.0-47.0); IMMATURE GRAN ABSOLUTE AUTO 0.02 10^3/uL (0.00-0.04); IMMATURE GRAN PERCENT AUTO 0.3 % (0.0-0.4); LYMPHOCYTES ABSOLUTE AUTO 0.81 10^3/uL (1.00-4.00); LYMPHOCYTES PERCENT AUTO 11.2 % (20.0-40.0); MEAN CORPUSCULAR HEMOGLOBIN 28.8 pg (27.0-31.0); MEAN CORPUSCULAR HGB CONC 32.8 g/dL (32.0-36.0); MEAN CORPUSCULAR VOLUME 87.5 fL (82.0-92.0); MEAN PLATELET VOLUME 9.2 fL (7.4-10.4); MONOCYTES ABSOLUTE AUTO 0.62 10^3/uL (0.10-0.80); MONOCYTES PERCENT AUTO 8.6 % (2.0-8.0); NEUTROPHILS ABSOLUTE AUTO 5.72 10^3/uL (2.50-7.00); NEUTROPHILS PERCENT AUTO 79.4 % (50.0-70.0); PLATELET COUNT,PLT 138 10^3/uL (150-400); RED BLOOD CELL COUNT 3.13 10^6/uL (3.80-5.50); RED CELL DISTRIBUTION WIDTH 15.8 % (11.5-14.5); WHITE BLOOD CELL COUNT,WBC 7.21 10^3/uL (5.00-10.00)
[2024-04-11 08:12] LABS: A/G RATIO 0.71; ALBUMIN 2.54 g/dL (3.40-5.00); BILIRUBIN DIRECT 0.2 mg/dL (0.0-0.2); BILIRUBIN INDIRECT 0.3 mg/dL; BILIRUBIN TOTAL 0.5 mg/dL (0.2-1.0); PROTEIN TOTAL,TP 6.1 g/dL (6.4-8.2)
[2024-04-11] MEDS: Levothyroxine 50 MCG Tab PO SCH (09:57)
[2024-04-11] MEDS: Trospium 20 MG Tab PO SCH (09:57)
[2024-04-11] MEDS: Saxagliptin 2.5 MG Tab PO SCH (09:58)
[2024-04-11] MEDS: Omeprazole 20 MG Cap.CR PO SCH (09:58)
[2024-04-11] MEDS: Losartan 50 MG Tab PO SCH (09:58)
[2024-04-11] MEDS: atorvaSTATin 10 MG Tab PO SCH (09:58)
[2024-04-11] MEDS: Aspirin 81 MG Tab.Chew PO SCH (09:59)
[2024-04-11] MEDS: Donepezil 10 MG Tab PO SCH (09:59)
[2024-04-11] MEDS: REMDESIVIR 100 MG in Sodium Chloride 0.9% 100 ML IV SCH (16:02)
[2024-04-11] MEDS ORDERED: Menthol Lozenge PO PRN (20:13)
[2024-04-11] MEDS: Menthol Lozenge PO PRN (20:27)
[2024-04-12 07:37] LABS: BASOPHILS ABSOLUTE AUTO 0.03 10^3/uL (0.00-0.10); BASOPHILS PERCENT AUTO 0.6 % (0.0-1.0); EOSINOPHILS ABSOLUTE AUTO 0.03 10^3/uL (0.10-0.30); EOSINOPHILS PERCENT AUTO 0.6 % (1.0-3.0); HEMATOCRIT 28.7 % (37.0-47.0); HEMOGLOBIN 9.2 g/dL (12.0-16.0); IMMATURE GRAN ABSOLUTE AUTO 0.01 10^3/uL (0.00-0.04); IMMATURE GRAN PERCENT AUTO 0.2 % (0.0-0.4); LYMPHOCYTES ABSOLUTE AUTO 1.02 10^3/uL (1.00-4.00); LYMPHOCYTES PERCENT AUTO 21.4 % (20.0-40.0); MEAN CORPUSCULAR HEMOGLOBIN 28.6 pg (27.0-31.0); MEAN CORPUSCULAR HGB CONC 32.1 g/dL (32.0-36.0); MEAN CORPUSCULAR VOLUME 89.1 fL (82.0-92.0); MEAN PLATELET VOLUME 10.5 fL (7.4-10.4); MONOCYTES ABSOLUTE AUTO 0.37 10^3/uL (0.10-0.80); MONOCYTES PERCENT AUTO 7.8 % (2.0-8.0); NEUTROPHILS ABSOLUTE AUTO 3.31 10^3/uL (2.50-7.00); NEUTROPHILS PERCENT AUTO 69.4 % (50.0-70.0); RED BLOOD CELL COUNT 3.22 10^6/uL (3.80-5.50); RED CELL DISTRIBUTION WIDTH 15.9 % (11.5-14.5); WHITE BLOOD CELL COUNT,WBC 4.77 10^3/uL (5.00-10.00)
[2024-04-12 07:40] LABS: PLATELET COUNT,PLT 150 10^3/uL (150-400)
[2024-04-12 07:55] LABS: A/G RATIO 0.68; ALBUMIN 2.4 g/dL (3.40-5.00); BILIRUBIN DIRECT 0.1 mg/dL (0.0-0.2); BILIRUBIN INDIRECT 0.3 mg/dL; BILIRUBIN TOTAL 0.4 mg/dL (0.2-1.0); PROTEIN TOTAL,TP 5.9 g/dL (6.4-8.2)
== END 2024-04-12 12:53 | disposition home or self-care (01) | DRG 179 ==
LOC: KA.ED 11:42 → KA.MS 14:07
PROVIDERS: ADMIT Internal Medicine; ATTEND Internal Medicine
PROC: XW033E5 Introduction of Remdesivir Anti-infective into Peripheral Vein, Percutaneous Approach, New Technology Group 5 (ICD-10-PCS; principal; 2024-04-10)
DX: U07.1 COVID-19 (principal); F03.90 Unspecified dementia, unspecified severity, without behavioral disturbance, psychotic disturbance, mood disturbance, and anxiety; E11.9 Type 2 diabetes mellitus without complications; H26.9 Unspecified cataract; I10 Essential (primary) hypertension; H54.7 Unspecified visual loss; E78.00 Pure hypercholesterolemia, unspecified; I48.91 Unspecified atrial fibrillation; I48.0 Paroxysmal atrial fibrillation; Z88.8 Allergy status to other drugs, medicaments and biological substances; K21.9 Gastro-esophageal reflux disease without esophagitis; Z79.02 Long term (current) use of antithrombotics/antiplatelets; Z79.82 Long term (current) use of aspirin; E03.9 Hypothyroidism, unspecified; Z79.2 Long term (current) use of antibiotics; Z95.0 Presence of cardiac pacemaker; Z79.890 Hormone replacement therapy; Z98.890 Other specified postprocedural states; Z90.89 Acquired absence of other organs; Z90.49 Acquired absence of other specified parts of digestive tract; Z79.899 Other long term (current) drug therapy; Z79.01 Long term (current) use of anticoagulants; Z79.84 Long term (current) use of oral hypoglycemic drugs; Z91.048 Other nonmedicinal substance allergy status
CPT/HCPCS: 0240U; 36415; 71045; 80053; 80076; 81001; 82947; 83605; 85025; 86140; 87040; 99223-GT; 99233-GT; 99238-GT; 99284; 99285; A9270-GY; J0248; J7030; J7050; Q3014

== ENCOUNTER 2025-03-05 19:20 | Emergency (ER) | payer MEDICARE, BC ==
[2025-03-05] MEDS ORDERED: Sodium Chloride 0.9% 10 ML Syringe FLUSH PRN (19:35)
[2025-03-05 19:47] LABS: BASOPHILS ABSOLUTE AUTO 0.05 10^3/uL (0.00-0.10); BASOPHILS PERCENT AUTO 0.7 % (0.0-1.0); EOSINOPHILS ABSOLUTE AUTO 0.06 10^3/uL (0.10-0.30); EOSINOPHILS PERCENT AUTO 0.9 % (1.0-3.0); IMMATURE GRAN ABSOLUTE AUTO 0.03 10^3/uL (0.00-0.04); IMMATURE GRAN PERCENT AUTO 0.4 % (0.0-0.4); LYMPHOCYTES ABSOLUTE AUTO 1.17 10^3/uL (1.00-4.00); LYMPHOCYTES PERCENT AUTO 16.6 % (20.0-40.0); MEAN PLATELET VOLUME 8.8 fL (7.4-10.4); MONOCYTES ABSOLUTE AUTO 0.55 10^3/uL (0.10-0.80); MONOCYTES PERCENT AUTO 7.8 % (2.0-8.0); NEUTROPHILS ABSOLUTE AUTO 5.19 10^3/uL (2.50-7.00); NEUTROPHILS PERCENT AUTO 73.6 % (50.0-70.0); PLATELET COUNT,PLT 216 10^3/uL (150-400); RED BLOOD CELL COUNT 3.44 10^6/uL (3.80-5.50); RED CELL DISTRIBUTION WIDTH 15.8 % (11.5-14.5); WHITE BLOOD CELL COUNT,WBC 7.05 10^3/uL (5.00-10.00)
[2025-03-05 20:04] LABS: ALANINE AMINOTRANSFERASE,ALT 15.0 U/L (14-63); ASPARTATE AMNIOTRANSFERASE,AST 14.0 U/L (15-37); BILIRUBIN TOTAL 0.3 mg/dL (0.2-1.0); BLOOD UREA NITROGEN,BUN 32.0 mg/dL (7-18); CARBON DIOXIDE,CO2 29.4 mmol/L (21.0-32.0); CHLORIDE,CL 96.0 mmol/L (98-107); CREATININE 1.18 mg/dL (0.51-1.17); EST CRCL DRUG DOSING (CG) 35.76 mL/min; GLUCOSE RANDOM 251.0 mg/dL (70-140); POTASSIUM,K 3.7 mmol/L (3.5-5.1); PROTEIN TOTAL,TP 6.9 g/dL (6.4-8.2); SODIUM,NA 133.0 mmol/L (136-145)
[2025-03-05 20:05] LABS: ESTIMATED GFR 45.0 mL/min (>=60)
[2025-03-05] MEDS: Lactated Ringers 1,000 ML IV SCH (20:21)
[2025-03-05 20:23] LABS: APPEARANCE,URINE CLEAR (CLEAR); GLUCOSE,URINE NEGATIVE (NEGATIVE); OCCULT BLOOD,URINE NEGATIVE (NEGATIVE)
[2025-03-05 20:31] LABS: EPITHELIAL CELLS,URINE RARE /LPF
[2025-03-05] MEDS: Ondansetron 4 MG/2 ML SDV IVPUSH ONE (20:43)
== END 2025-03-05 21:01 ==
LOC: KA.ED 19:20
DX: S72.002A Fracture of unspecified part of neck of left femur, initial encounter for closed fracture (principal); S42.202A Unspecified fracture of upper end of left humerus, initial encounter for closed fracture; I48.91 Unspecified atrial fibrillation; I10 Essential (primary) hypertension; E78.00 Pure hypercholesterolemia, unspecified; K21.9 Gastro-esophageal reflux disease without esophagitis; E03.9 Hypothyroidism, unspecified; Z88.8 Allergy status to other drugs, medicaments and biological substances; Z90.49 Acquired absence of other specified parts of digestive tract; Z79.890 Hormone replacement therapy; Z79.01 Long term (current) use of anticoagulants; Z79.82 Long term (current) use of aspirin; Z79.84 Long term (current) use of oral hypoglycemic drugs; Z79.899 Other long term (current) drug therapy
CPT/HCPCS: 36415; 71045; 73030-LT; 80053; 81001; 84484; 85025; 96361; 96374; 99285-25; A4315; J2405; J7120